=== PATIENT | female | born 1985 | race Caucasian/White ===

== ENCOUNTER 2018-12-02 13:20 | Emergency (ER) | payer MEDICAID ==
[~2018-12-02] VITALS: Ht 152.4 cm; Wt 59.7 kg
[2018-12-02 13:24] VITALS: Ht 152.4 cm; Wt 59.7 kg
--- NOTE | 2018-12-02 14:23 | ERD ---
ER Documentation Chief Complaint Chief Complaint c/o right breast pain x3 days, "feels like balls on side". HPI 33-year-old female, currently breast-feeding her 5-month-old baby, presents to the emergency department, complaining of 3 days with progressive worsening of right breast pain associated with local induration. The patient denies fevers, no chills. ROS All systems reviewed and are negative except as per history of present illness. Medications Home Meds Active Scripts Ibuprofen* (Motrin*) 400 Mg Tab, 400 MG PO Q6H PRN for PAIN AND OR ELEVATED TEMP, #20 TAB Prov:HUMA PERERA MD 12/02/18 Sulfamethoxazole/Trimethoprim* (Bactrim Ds* Tablet) 1 Each Tablet, 1 TAB PO BID, #14 TAB Prov:HUMA PERERA MD 12/02/18 Cephalexin* (Keflex*) 500 Mg Capsule, 500 MG PO QID for 7 Days, CAP Prov:HUMA PERERA MD 12/02/18 Allergies Allergies: Coded Allergies: No Known Allergy (Unverified , 12/02/18) PMhx/Soc Medical and Surgical Hx: pt denies Medical Hx, pt denies Surgical Hx Hx Alcohol Use: No Hx Substance Use: No Hx Tobacco Use: No FmHx Family History: No diabetes, No coronary disease Physical Exam Vitals Vital Signs Date Temp Pulse Resp B/P (MAP) Pulse Ox O2 O2 Flow FiO2 Time Delivery Rate 12/02/18 99.3 80 18 129/73 100 13:24 (91) Physical Exam Patient alert, oriented, vital signs stable. HEAD: Normocephalic, atraumatic. EYES: PERRLA, EOMI, Sclera and conjunctiva appear normal. NOSE: Clear and patent nostrils. EARS: Canals clear, tympanic membranes WNL. MOUTH: normal lips and tongue, no oral lesions. THROAT: Normal oropharynx, no tonsillar exudates. NECK: Supple, No lymphadenopathy. Full ROM without pain or tenderness. HEART: RRR, no rubs, murmurs, clicks or gallops. LUNGS: Clear to auscultation. BREAST: Right: Lateral lower quadrant with tender induration, approximately 3 cm, no skin erythema or fluctuance, contralateral breast normal. ABDOMEN: Soft, non-tender without masses or hepatosplenomegaly. EXTREMITIES: No edema bilaterally. BACK: Full ROM, no deformity, normal back exam NEURO: Cranial nerves grossly intact, no motor or sensory deficit SKIN: No rashes, no petechia. Procedures/MDM Vital signs stable. Differential diagnosis considered include hematoma, mastitis, lipoma, cyst, f ibroglandular changes of the breast. Low suspicion for malignancy. During the ED course the patient remained stable, no new complaints. Results and clinical impression discussed with the patient who agrees with management. The patient is stable to be treated outpatient and will be discharged home with a Rx for Bactrim and cephalexin, some side effects of prescribed medications (h eadache, rash, nausea, vomiting, diarrhea, bleeding, hypertension, interactions with other medications) were reviewed. Follow up with the primary care provider in the next 48h has been recommended. If symptoms persist, worsen or new symptoms develop, then patient should return to the ED immediately. Instructions explained and given directly by me to the patient with acknowledgme nt and demonstrated understanding. Disclaimer: Inadvertent spelling and grammatical errors are likely due to EHR/dictation software use and do not reflect on the overall quality of patient care. Also, please note that the electronic time recorded on this note does not necessarily reflect the actual time of the patient encounter. Departure Diagnosis: Primary Impression: Acute mastitis of right breast Condition: Stable Additional Instructions: Muchas neli por [facility] para kumar servicio. Esperamos que en kumar visita a la brea de emergencia kumar problema medico haya sido solucionado y que se sienta mucho mejor. Para estar seguros que kumar mejoria sigue en proceso, le pedimos el favor de hacer erika piedad de seguimiento medico con kumar doctor primario en los proximos 2-4 howell. Lleve con usted estos documentos y las medicinas recetadas. Si hugo sintomas empeoran, NO SE ESPERE, por favor regrese a brea de emergencia INMEDIATAMENTE. En luis que usted no tenga un mdico de atencin primaria: Llame al mdico o clnica comunitaria de referencia que aparece abajo sandra las horas de consultorio para hacer erika piedad para que le vean. CLINICAS: [facility] [phone] [id number] [facility] [phone] [address] [facility] [phone] [facility] [phone] [place] [id number] [phone] [facility]. [phone] HUMA SAGE MD Dec 02, 2018 14:23
[2018-12-02] MEDS ORDERED: CEPH-443 PO (14:25)
[2018-12-02] MEDS ORDERED: IBUP-1561 PO (14:25)
[2018-12-02] MEDS ORDERED: SULF1TAB31 PO (14:25)
== END 2018-12-02 14:34 | disposition home or self-care (01) ==
LOC: FTE 13:20
DX: N61.0 Mastitis without abscess (principal)
CPT/HCPCS: 99283